=== PATIENT | female | born 1935 | race Caucasian/White ===

== ENCOUNTER → 2023-11-29 06:33 | Outpatient (REF) | payer MEDICARE, OTHER, SELFPAY ==
[2023-11-29 07:44] LABS: ALT (SGPT) 22 U/L (0-35); AST (SGOT) 38 U/L (14-36); Albumin 3.9 g/dl (3.5-5.0); Alkaline Phosphatase 78 U/L (38-126); Blood Urea Nitrogen 25 mg/dl (7-17); Calcium 9.1 mg/dl (8.4-10.2); Carbon Dioxide 31 mmol/L (22-30); Chloride 101 mmol/L (98-107); Glucose 106 mg/dl (70-99); HDL Cholesterol 46 mg/dl; LDL Cholesterol, Calculated 70 mg/dl; Potassium 4.3 mmol/L (3.5-5.1); Sodium 140 mmol/L (135-145); Total Bilirubin 1.4 mg/dl (0.2-1.3); Total Cholesterol 142 mg/dl (50-199); Total Protein 6.9 g/dl (6.3-8.2); Triglyceride 133 mg/dl (10-149); Very Low Density Lipoprotein 26 mg/dl (0-30); eGFR > 60.00
[2023-11-29 07:44] LABS: Microalbumin, Random Urine 8.4 mg/dl (0.6-1.7); Microalbumin/creatinine Ratio 55.8 mg/g
[2023-11-29 09:49] LABS: Glycohemoglobin (HgbA1c) 6.9 % (4.0-5.6)
== END ==
LOC: REG 06:33
PROVIDERS: ATTENDING PHYSICIAN Internal Medicine
DX: E78.00 Pure hypercholesterolemia, unspecified (principal); E11.8 Type 2 diabetes mellitus with unspecified complications
CPT/HCPCS: 36415; 80053; 80061; 82043; 82570; 83036

== ENCOUNTER → 2023-12-29 10:42 | Outpatient (REF) | payer MEDICARE, OTHER, SELFPAY | LOC: RAD 10:42 | PROVIDERS: ATTENDING PHYSICIAN Internal Medicine Gastroenterology; FAMILY PHYSICIAN Family Medicine | DX: R12 Heartburn (principal) | CPT/HCPCS: 74246 ==

== ENCOUNTER → 2024-02-19 10:40 | Outpatient (REF) | payer MEDICARE, OTHER, SELFPAY | LOC: HWRAD 10:40 | PROVIDERS: ATTENDING PHYSICIAN Internal Medicine Gastroenterology; FAMILY PHYSICIAN Family Medicine | DX: R19.5 Other fecal abnormalities (principal) | CPT/HCPCS: 74261 ==

== ENCOUNTER → 2024-04-16 11:26 | Outpatient (REF) | payer MEDICARE, OTHER, SELFPAY | LOC: WDC 11:26 | PROVIDERS: ATTENDING PHYSICIAN Surgery; FAMILY PHYSICIAN Family Medicine | DX: Z12.31 Encounter for screening mammogram for malignant neoplasm of breast (principal) | CPT/HCPCS: 77063; 77067 ==

== ENCOUNTER → 2024-06-14 06:30 | Outpatient (REF) | payer MEDICARE, OTHER, SELFPAY ==
[2024-06-14 07:14] LABS: % Basophils 0.8 % (0-2); % Eosinophils 3.8 % (0-6); % Immature Granulocytes 0.2 % (0-0.5); % Lymphocytes 23.2 % (20.5-51.1); % Monocytes 13.3 % (1.7-9.3); % Neutrophils 58.7 % (42.2-75.2); Absolute Eosinophils 0.2 10^3/uL (0-0.7); Absolute Lymphocytes 1.1 10^3/uL (1.2-3.4); Absolute Monocytes 0.6 10^3/uL (0.1-0.6); Absolute Neutrophils 2.8 10^3/uL (1.4-6.5); Hematocrit 43.3 % (37.0-47.0); Hemoglobin 14.1 g/dL (12.0-16.0); Mean Corp Hgb Conc. 32.6 g/dL (33.0-37.0); Mean Corpuscular Hgb 30.1 pg (27.0-31.0); Mean Corpuscular Volume 92.5 fL (81.0-99.0); Mean Platelet Volume 10.5 fL (7.4-10.4); Nucleated Red Blood Cells % 0 %; Platelet Count 166 10^3/uL (130-400); Red Blood Cell Count 4.68 10^6/uL (4.20-5.40); Red Cell Dist. Width 12.5 % (11.5-14.5); White Blood Cell Count 4.7 10^3/uL (4.8-10.8)
[2024-06-14 07:43] LABS: ALT (SGPT) 25 U/L (0-35); AST (SGOT) 37 U/L (14-36); Alkaline Phosphatase 80 U/L (38-126); Blood Urea Nitrogen 23 mg/dl (7-17); Calcium 9.1 mg/dl (8.4-10.2); Carbon Dioxide 32 mmol/L (22-30); Chloride 101 mmol/L (98-107); Glucose 98 mg/dl (70-99); HDL Cholesterol 47 mg/dl; LDL Cholesterol, Calculated 67 mg/dl; Potassium 4.4 mmol/L (3.5-5.1); Sodium 142 mmol/L (135-145); Total Bilirubin 1.1 mg/dl (0.2-1.3); Total Cholesterol 143 mg/dl (50-199); Total Protein 6.9 g/dl (6.3-8.2); Triglyceride 149 mg/dl (10-149); Very Low Density Lipoprotein 29 mg/dl (0-30); eGFR > 60.00
[2024-06-14 08:00] LABS: Vitamin D, 25-OH*** 51.7 ng/mL (30-80)
[2024-06-14 09:54] LABS: Glycohemoglobin (HgbA1c) 6.5 % (4.0-5.6)
[2024-06-15 11:41] LABS: Intact PTH 116.8 pg/ml (13.6-85.8)
== END ==
LOC: REG 06:30
PROVIDERS: ATTENDING PHYSICIAN Family Medicine
DX: E11.8 Type 2 diabetes mellitus with unspecified complications (principal); E78.00 Pure hypercholesterolemia, unspecified; E34.9 Endocrine disorder, unspecified; E55.9 Vitamin D deficiency, unspecified
CPT/HCPCS: 36415; 80053; 80061; 82306; 83036; 83970; 84443; 85025

== ENCOUNTER → 2024-07-10 10:34 | Outpatient (REF) | payer MEDICARE, OTHER, SELFPAY | LOC: WDC 10:34 | PROVIDERS: ATTENDING PHYSICIAN Surgery; FAMILY PHYSICIAN Family Medicine | DX: R92.2 Inconclusive mammogram (principal) | CPT/HCPCS: 76641 ==

== ENCOUNTER → 2024-12-06 07:46 | Outpatient (REF) | payer MEDICARE, OTHER, SELFPAY ==
[2024-12-06 08:39] LABS: % Basophils 0.8 % (0-2); % Eosinophils 2.6 % (0-6); % Immature Granulocytes 0.4 % (0-0.5); % Lymphocytes 25.5 % (20.5-51.1); % Monocytes 12.8 % (1.7-9.3); % Neutrophils 57.9 % (42.2-75.2); Absolute Eosinophils 0.1 10^3/uL (0-0.7); Absolute Lymphocytes 1.3 10^3/uL (1.2-3.4); Absolute Monocytes 0.6 10^3/uL (0.1-0.6); Absolute Neutrophils 2.8 10^3/uL (1.4-6.5); Hematocrit 47.8 % (37.0-47.0); Hemoglobin 15.6 g/dL (12.0-16.0); Mean Corp Hgb Conc. 32.6 g/dL (33.0-37.0); Mean Corpuscular Hgb 31.4 pg (27.0-31.0); Mean Corpuscular Volume 96.2 fL (81.0-99.0); Mean Platelet Volume 11.3 fL (7.4-10.4); Nucleated Red Blood Cells % 0 %; Platelet Count 149 10^3/uL (130-400); Red Blood Cell Count 4.97 10^6/uL (4.20-5.40); Red Cell Dist. Width 12.8 % (11.5-14.5); White Blood Cell Count 4.9 10^3/uL (4.8-10.8)
[2024-12-06 09:41] LABS: ALT (SGPT) 22 U/L (0-35); AST (SGOT) 37 U/L (14-36); Alkaline Phosphatase 84 U/L (38-126); Blood Urea Nitrogen 25 mg/dl (7-17); Calcium 9.4 mg/dl (8.4-10.2); Carbon Dioxide 33 mmol/L (22-30); Chloride 102 mmol/L (98-107); Glucose 99 mg/dl (70-99); HDL Cholesterol 48 mg/dl; LDL Cholesterol, Calculated 80 mg/dl; Potassium 4.5 mmol/L (3.5-5.1); Sodium 143 mmol/L (135-145); Total Bilirubin 1.4 mg/dl (0.2-1.3); Total Cholesterol 161 mg/dl (50-199); Triglyceride 168 mg/dl (10-149); Very Low Density Lipoprotein 33 mg/dl (0-30); eGFR > 60.00
[2024-12-06 09:47] LABS: Glycohemoglobin (HgbA1c) 6.6 % (4.0-5.6)
[2024-12-07 09:31] LABS: Intact PTH 121.3 pg/ml (13.6-85.8)
== END ==
LOC: REG 07:46
PROVIDERS: ATTENDING PHYSICIAN Family Medicine
DX: E11.8 Type 2 diabetes mellitus with unspecified complications (principal); E78.00 Pure hypercholesterolemia, unspecified; E34.9 Endocrine disorder, unspecified; R53.83 Other fatigue; Z12.11 Encounter for screening for malignant neoplasm of colon
CPT/HCPCS: 36415; 80053; 80061; 83036; 83970; 85025

== ENCOUNTER → 2024-12-31 13:36 | Outpatient (REF) | payer MEDICARE, OTHER, SELFPAY | LOC: REG 13:36 | PROVIDERS: ATTENDING PHYSICIAN Family Medicine | DX: Z12.11 Encounter for screening for malignant neoplasm of colon (principal); Z79.01 Long term (current) use of anticoagulants | CPT/HCPCS: 82272 ==

== ENCOUNTER 2025-01-01 19:42 | Inpatient (IN) | payer MEDICARE, OTHER, SELFPAY ==
[2025-01-01 14:32] VITALS: BP 155/83
[2025-01-01 15:47] VITALS: BMI 30.4
--- NOTE | 2025-01-01 16:15 | ED.MUSCINJ ---
HPI-Injury
General
Chief Complaint: Fall
Source: patient
Exam Limitations: none
Time Seen by Provider: 01/01/25 15:49
History of Present Illness-Injury
Initial Injury comments:
89-year-old female on Eliquis presents via EMS after a fall. She tripped on a curb and fell backwards. Hitting her head. She complains of right hip and right shoulder pain as well. No loss of conscious. Last took her Eliquis this morning. She
takes her Eliquis for history of A-fib. No chest pain or shortness of breath. No other complaints at this time
Past History
Past History
ED Past Medical History: CAD, GERD, Hypercholesterolemia and GA
ED Past Surgical History: Cardiac (Angioplasty with stenting), Tonsilectomy and Other (Cataract surgery, left breast biopsy)
Social History
Tobacco: Former smoker (, leg or)
Living: alone
Family History
Family History: Unable to obtain
Phy Exam
Physical Exam
Physical Exam:
General: Well-appearing female no acute respiratory distress
HEENT: Normocephalic atraumatic
Heart: Regular rate and rhythm
Lungs: Clear no wheeze
Musculoskeletal exam: Right hip is tender anteriorly and laterally. Subtle external rotation of the right leg with increased pain with internal rotation. Right shoulder is also swollen and tender over the proximal humerus VaQua spine immobilized
in collar
Abdomen is soft nontender nondistended
Injury Course
Orders/Labs/Results
Orders:
Orders
01/01/25 14:37
[address] Cervical Spine W/o Iv Contr Urgent
Comment:
Reason For Exam: fall
CT Head W/o Iv Contrast Urgent
Comment:
Reason For Exam: fall
01/01/25 16:13
Morphine Sulfate 4 mg IV NOW STA
Ondansetron Injectable [Zofran] 4 mg IV NOW STA
CR Hip - RT w/wo Pel 2-3 Vw* Urgent
Comment:
Reason For Exam: fall
Include a pelvis x-ray?: Yes
CR Shoulder, Trauma - Right Urgent
Comment:
Reason For Exam: fall
01/01/25 17:36
CR Hand - Right Min 3 Views Urgent
Comment:
Reason For Exam: fall
01/01/25 17:41
Type+Screen Urgent
Complete Blood Count/With Diff Urgent
Comprehensive Metabolic Panel Urgent
Abnormal Lab Results
01/01/25
17:41
MCH 31.7 H pg
(27.0-31.0)
MPV 10.6 H fL
(7.4-10.4)
Abs Immat Gran (auto) 0.1 H 10^3/uL
(0-0.05)
Absolute Neuts (auto) 8.7 H 10^3/uL
(1.4-6.5)
Absolute Lymphs (auto) 0.6 L 10^3/uL
(1.2-3.4)
Neutrophils % 86.6 H %
(42.2-75.2)
Lymphocytes % 6.0 L %
(20.5-51.1)
Potassium 5.3 H mmol/L
(3.5-5.1)
Carbon Dioxide 31 H mmol/L
(22-30)
BUN 26 H mg/dl
(7-17)
Glucose 172 H mg/dl
(70-99)
01/01/25 17:41
01/01/25 17:41
MDM/Problems Addressed
Differential Diagnosis Includes:
Fall with head strike on Eliquis also complains of right hip and shoulder pain. CT of head and cervical spine pending to evaluate for intracranial hemorrhage. X-ray right hip and shoulder pending to evaluate for fractures
*Critical Care Note
Total Time (30-74mins, 75-104mins- exclusive of procedures): Not Applicable
Update Note
Update Note:
X-rays right hip demonstrate femoral neck fracture x-ray right shoulder demonstrates comminuted proximal humerus fracture. CT of the head and cervical spine were negative for acute traumatic injury. Patient received some relief of her pain with
morphine IV. Will admit to hospital for further evaluation and treatment
ED Attending Note
-
Portions of this chart may have been created with voice recognition software.� Occasional wrong word or��sound alike� substitutions may have occurred due to the inherent limitations of voice recognition software.
Discharge Plan
Departure
Patient Disposition: Admit
Date of Disposition: 01/01/25
Time of Disposition: 18:34
Presentation/result/management discussed w/ accepting MD/DO: Hospitalist
Discharge Problem:
Closed fracture of right hip, Closed fracture of proximal end of right humerus
Prescriptions:
No Action
omega-3 fatty acids-fish oil 1 EACH capsule
2 ea PO DAILY
Patient Comments:
chewables
simvastatin 40 MG tablet
40 mg PO QPM
Patient Comments:
pt cuts pill up into pieces
calcium carbonate [Antacid Extra-Strength] 1 TABLET tablet,chewable
1 tab PO PRN PRN (Reason: gerd)
lansoprazole 30 MG capsule,delayed release(DR/EC)
30 mg PO DAILY
denosumab [Prolia] 60 MG/ML syringe
60 mg SQ
Patient Comments:
q 6 months
apixaban [Eliquis] 5 MG tablet
5 mg PO BID
metoprolol tartrate 50 MG tablet
50 mg PO BID Qty: 60 2RF
Referrals:
NONE,* [Family Provider] -
Interventions
Interventions:
*Risk Screen - Suicide Last Done: 01/01/25 14:32
*General Assessment Last Done: 01/01/25 14:32
*Neglect/Abuse Screening Last Done: 01/01/25 14:32
*ED COVID-19 Vaccine History Last Done: 01/01/25 14:32
ED-Musculoskeletal Assessment Last Done: 01/01/25 15:48
ED- Neurological Assessment Last Done: 01/01/25 15:48
ED-Skin Assessment Last Done: 01/01/25 18:28
Discharge Date and Time
Print Language: SERBIAN
[2025-01-01] MEDS: MORPHINE SULFATE 4 MG IV (16:27)
[2025-01-01] MEDS: ZOFRAN 4 MG IV ×2 (16:27→22:17)
[2025-01-01 18:02] LABS: ALT (SGPT) 20 U/L (0-35); AST (SGOT) 30 U/L (14-36); Albumin 4.1 g/dl (3.5-5.0); Alkaline Phosphatase 83 U/L (38-126); Blood Urea Nitrogen 26 mg/dl (7-17); Carbon Dioxide 31 mmol/L (22-30); Chloride 103 mmol/L (98-107); Estimated Creatinine Clearance 40 ml/min; Glucose 172 mg/dl (70-99); Potassium 5.3 mmol/L (3.5-5.1); Sodium 140 mmol/L (135-145); Total Bilirubin 1.1 mg/dl (0.2-1.3); Total Protein 6.7 g/dl (6.3-8.2); eGFR > 60.00
[2025-01-01 18:18] LABS: % Basophils 0.3 % (0-2); % Eosinophils 0.9 % (0-6); % Immature Granulocytes 0.5 % (0-0.5); % Monocytes 5.7 % (1.7-9.3); % Neutrophils 86.6 % (42.2-75.2); Absolute Eosinophils 0.1 10^3/uL (0-0.7); Absolute Immature Granulocytes 0.1 10^3/uL (0-0.05); Absolute Lymphocytes 0.6 10^3/uL (1.2-3.4); Absolute Monocytes 0.6 10^3/uL (0.1-0.6); Absolute Neutrophils 8.7 10^3/uL (1.4-6.5); Hematocrit 44.3 % (37.0-47.0); Hemoglobin 14.7 g/dL (12.0-16.0); Mean Corp Hgb Conc. 33.2 g/dL (33.0-37.0); Mean Corpuscular Hgb 31.7 pg (27.0-31.0); Mean Corpuscular Volume 95.7 fL (81.0-99.0); Mean Platelet Volume 10.6 fL (7.4-10.4); Nucleated Red Blood Cells % 0 %; Platelet Count 145 10^3/uL (130-400); Red Blood Cell Count 4.63 10^6/uL (4.20-5.40); Red Cell Dist. Width 12.5 % (11.5-14.5)
[2025-01-01 18:36] VITALS: BP 106/66
--- NOTE | 2025-01-01 18:38 | HPS.HSE ---
Family Physician
-
Family Physician: * NONE
Chief Complaint
-
mechanical fall
History of Present Illness
Patient is a 89-year-old female with past medical history significant for essential hypertension, hypercholesterolemia, persistent atrial fibrillation, DM-II, CAD and GERD who presented to [facility] ED for evaluation of mechanical fall. Patient reports
attempting to step on curb and lost balance and fell backwards landing on right side and did strike head. She denies any dizziness, confusion, or weakness. Denies loss of consciousness. Patient on Eliquis, last dose this morning.
Medical History
Past Medical History
Past Medical History: Reports Other
Additional Past Medical History:
essential hypertension
hypercholesterolemia
persistent atrial fibrillation
DM-II
CAD
GERD
Hx ductal carcinoma in situ of breast
Past Surgical History: Reports Other
Additional Past Surgical History:
Cardiac stents x 4
Breast biopsy(1988)
Aneurysm left leg
L hip replacement
Right Breast Lumpectomy 01/04/2016 radiation 24 sessions- no chem
Social History
Tobacco: Non-smoker
Family History
Family History: Not pertinent
Allergies / Home Medications
Allergies reflects when Allergies were last updated in [employer].
Home Medications with original date entered in [employer]
Allergy/Medication List:
Allergies
Allergy/AdvReac Type Severity Reaction Status Date / Time
Enviornmental Allergy Runny Uncoded 01/01/25 14:37
nose,
eyes/ears
itching,
sneezing
Home Medications
apixaban 5 mg tablet (Eliquis) 5 mg PO BID Blood clot prevention/tx 09/19/20
metoprolol tartrate 50 mg tablet 50 mg PO BID #60 tabs 09/24/20
B Complete Gummy 1 tab PO DAILY 01/01/25
ascorbic acid (vitamin C) 500 mg chewable tablet (Vitamin C) 500 mg PO DAILY 01/01/25
pediatric multivitamin no.258 (Centrum Kids Multigummy chewable tablet) 1 tab PO DAILY 01/01/25
pravastatin 20 mg tablet 20 mg PO HS 01/01/25
Review of Systems
-
History Source: Patient
Constitutional: Reports No Symptoms
EENT: Reports No Symptoms
Respiratory: Reports No Symptoms
Cardiac: Reports No Symptoms
Abdomen/GI: Reports No Symptoms
: Reports No Symptoms
Musculoskeletal: Reports Joint Pain (right shoulder, right hip)
Skin: Reports No Symptoms
Neurological: Reports No Symptoms
Endocrine: Reports No Symptoms
Hematologic/Lymphatic: Reports No Symptoms
Psych: Reports No Symptoms
Physical Exam
Vital Signs
Vital Signs
Temp Pulse Resp BP Pulse Ox
98.6 F 83 18 106/66 93
01/01/25 18:36 01/01/25 18:36 01/01/25 18:36 01/01/25 18:36 01/01/25 18:36
Physical Exam
General: Well Developed, Well Nourished, No Apparent Distress, Comfortable and Conversant
HEENT: NormoCephalic, Moist mucous membranes, Atraumatic, [place] Conjunctivae, Nose Appears Normal and Ears Appear Normal
Respiratory: Clear
Cardiac: S1/S2 and Irregular Rhythm
Breast: Deferred by me
GI: Soft, Non Tender, Non Distended and Normal Bowel Sounds
Rectal: Deferred by Provider
Genito-urinary: Deferred by me
Musculoskeletal: No Clubbing, No Cyanosis, No Edema and Other (right should and right hip pain with limited ROM )
Skin: IV/Catheter Site
Neuro: Awake, Alert, AO x 3 and Nonfocal/grossly intact
Psych: Calm and Intact Judgment/Insight
Laboratory Results
-
01/01/25 17:41
01/01/25 17:41
Laboratory Results
Total Bilirubin 1.1 mg/dl (0.2-1.3) 01/01/25 17:41
AST 30 U/L (14-36) 01/01/25 17:41
ALT 20 U/L (0-35) 01/01/25 17:41
Alkaline Phosphatase 83 U/L (38-126) 01/01/25 17:41
Data Reviewed
-
Diagnostic Radiology: Report Reviewed by me (Right shoulder, Right hip, hand (see reports))
CT Scan: Report Reviewed by me (Head/c-spine: 1. No acute intracranial abnormality noted. 2. No acute fracture or subluxation of the cervical spine.)
Lab Data: Labs Reviewed by me
Impression/Plan
-
IMPRESSION/PLAN:
#mechanical fall
Right hand x-ray: No acute fracture or dislocation. Scattered moderate to severe degenerative changes. Chondrocalcinosis of the wrist.
Right shoulder x-ray: Proximal right humerus fracture.
Right Hip x-ray: Impacted subcapital right femoral neck fracture with mild varus angulation. No intertrochanteric or intra-articular extension or dislocation.
Moderate to severe degenerative changes of the right hip. Total left hip arthroplasty noted without overt complication. Mild degenerative changes of the pubis symphysis,
bilateral sacroiliac joints and partially visualized lower lumbar spine. Soft tissues are grossly unremarkable.
Head/C-spine CT: 1. No acute intracranial abnormality noted.
2. No acute fracture or subluxation of the cervical spine.
- Admit to med/surg
- Consult Orthopedics
- NPO at midnight for possible OR tomorrow
- Pain regimen
#essential hypertension
- continue metoprolol
#hypercholesterolemia
- continue pravastatin
#persistent atrial fibrillation
- continue metoprolol
- hold Eliquis for potential OR
#DM-II
controlled with diet and exercise
#CAD
#GERD
#Hx ductal carcinoma in situ of breast
s/p lumpectomy and radiation
Code status: full code
DVT prophylaxis: SCDs
[2025-01-01 18:47] VITALS: BP 113/85
[2025-01-01 19:00] VITALS: BP 127/84
[2025-01-01] MEDS: DILAUDID 0.5 MG IV (19:41)
--- NOTE | 2025-01-01 20:04 | W.PN.UPDATE ---
Update Note
Progress Note Update
This is an addendum to the H&P written by Gena Hawk on 01/01/2025.� Patient seen examined independently with BLACKJACK DEALER.
89-year-old female past medical history of paroxysmal atrial fibrillation on Eliquis, CAD status post stents, hypertension, hyperlipidemia, popliteal aneurysm status post repair, tricuspid regurgitation, mild mitral regurgitation, right breast
cancer status post lumpectomy, GERD, hiatal hernia, irritable bowel syndrome, diverticulosis, allergic rhinitis, osteoarthritis, presenting after a fall.� She tripped on a curb and fell backwards hitting her head.� Complains of right hip and right
shoulder pain.
Labs show potassium 5.3.
CT head and cervical spine negative.
Patient has proximal right humerus fracture and shoulder x-ray.� She has also impacted subcapital right femoral neck fracture.
Right shoulder CT scan pending.
Check EKG.� Hyperkalemia�likely�secondary to hypovolemia.� IV fluids.� Pain control with Tylenol and Dilaudid.� Ortho consulted.� Hold Eliquis.� N.p.o. postmidnight for potential surgery tomorrow.� Patient appears well compensated and although at
higher risk of postcardiac complications due to history and can proceed to surgery.
[2025-01-01 21:12] VITALS: BP 124/86
[2025-01-01 21:53] VITALS: BMI 28.6
[2025-01-01] MEDS: LOPRESSOR 50 MG PO (22:05)
[2025-01-01] MEDS: PRAVACHOL 20 MG PO (22:05)
[2025-01-01] MEDS: NSS 1000 IV (22:06)
[2025-01-01 23:20] VITALS: BP 124/73
[2025-01-02] VITALS (13 sets, daily range): BP systolic 128–153; BP diastolic 69–97
--- NOTE | 2025-01-02 00:34 | PTCARENOTE ---
pt bladder scan for 307ml, no urine output since adm to unit, attempted bed bryant but unable to void, will attempt in an hour.
[2025-01-02] MEDS: DILAUDID 0.5 MG IV ×2 (00:45→15:16)
--- NOTE | 2025-01-02 01:02 | PTCARENOTE ---
Pt has healing, dry red patches of poison chencho on right arm, bl thigh and r/s abdomen. Pt was treating at home with calamine lotion. Areas are CARON air at this time, Pt right thumb and right elbow with small laceration, cleansed and dry dressing
applied.
--- NOTE | 2025-01-02 05:09 | DOWNTIME ---
There was a ezzai - how to arab[facility] Client [employer] Downtime on 01/02/2025 from 0200 to 01/03/2024 at 0318 . Downtime documentation of patient's care, including medication administrations, has been reconciled in the electronic record per guidelines. Refer to the
patient's paper chart under the miscellaneous tab to see printed paper medication records and downtime forms.
[2025-01-02 05:20] LABS: Urine Albumin 1+ (Neg - Trace); Urine Bilirubin Negative (Negative); Urine Character Clear (Clear); Urine Color Yellow; Urine Glucose Negative (Negative); Urine Ketone 2+ (Negative); Urine Leukocyte Negative (Negative); Urine Nitrite Negative (Negative); Urine Occult Blood Negative (Negative); Urine Specific Gravity 1.025 (<1.030); Urine Urobilinogen Negative (Neg - 1+)
[2025-01-02 06:19] LABS: Urine Calcium Oxalate Crystals Seen
[2025-01-02 06:20] LABS: Urine Bacteria Few (Negative); Urine Mucus Few; Urine Red Blood Cell 0-2 /HPF (0-2); Urine White Cell 0-2 /HPF (0-5)
--- NOTE | 2025-01-02 07:00 | W.PN.UPDATE ---
Update Note
Progress Note Update
Full orthopedic consult dictated:
Dx: Right comminuted proximal humerus fracture and right nondisplaced femoral neck fracture
Plan: Patient is going to undergo right hip cannulated screws later today and after complete Eliquis washout do right reverse total shoulder arthroplasty at a later date both under direction of Dr. Torres. She will be n.p.o. for now and Ancef
on-call to operating room. [place] on hold for stop.
[2025-01-02] MEDS: NSS 1000 IV ×2 (07:55→20:23)
[2025-01-02 07:59] LABS: Hematocrit 40.6 % (37.0-47.0); Hemoglobin 13.4 g/dL (12.0-16.0); Mean Corpuscular Hgb 31.9 pg (27.0-31.0); Mean Corpuscular Volume 96.7 fL (81.0-99.0); Mean Platelet Volume 11.2 fL (7.4-10.4); Platelet Count 138 10^3/uL (130-400); Red Cell Dist. Width 12.9 % (11.5-14.5); White Blood Cell Count 8.5 10^3/uL (4.8-10.8)
[2025-01-02] MEDS: LOPRESSOR PO (08:00)
[2025-01-02] MEDS: ZOFRAN 4 MG IV ×2 (08:01→15:16)
[2025-01-02 08:30] LABS: Blood Urea Nitrogen 27 mg/dl (7-17); Calcium 8.4 mg/dl (8.4-10.2); Carbon Dioxide 25 mmol/L (22-30); Chloride 105 mmol/L (98-107); Estimated Creatinine Clearance 44 ml/min; Glucose 214 mg/dl (70-99); Potassium 4.7 mmol/L (3.5-5.1); Sodium 142 mmol/L (135-145); eGFR > 60.00
--- NOTE | 2025-01-02 11:01 | CM ---
Reviewed the chart notes and spoke with the patient and daughter at the bedside. The patient resides alone in a one story home with a total of four steps to enter with side railing. The patient reports on DME is a cane. The patient has had [facility]
in the past, but no SNF. The patient confirmed her pharmacy of choice is the [facility]. Patient to go to OR today for hip fx repair. Later plan is for right reverse total shoulder arthroplasty at a later date CM continues to be
available to patient/family and is monitoring medical plan for needs at discharge.
Plan: Most likely SNF. List of area SNFs provided to the patient's daughter for review. No precert will be required.
[2025-01-02] MEDS: LR 1000 IV (11:15)
--- NOTE | 2025-01-02 12:24 | W.PN.HOSP.TC ---
Today's Communication/Plan
-
holding Eliquis
OR today
PT/OT after
Assessment / Plan
Assessment / Plan
Physical Exam
General: Well Developed, Well Nourished, No Apparent Distress, Comfortable and Conversant
HEENT: NormoCephalic, Moist mucous membranes, Atraumatic, [place] Conjunctivae, Nose Appears Normal and Ears Appear Normal
Respiratory: Clear
Cardiac: S1/S2 and Irregular Rhythm
Breast: Deferred by me
GI: Soft, Non Tender, Non Distended and Normal Bowel Sounds
Rectal: Deferred by Provider
Genito-urinary: Deferred by me
Musculoskeletal: No Clubbing, No Cyanosis, No Edema and Other (right should and right hip pain with limited ROM )
Skin: IV/Catheter Site
Neuro: Awake, Alert, AO x 3 and Nonfocal/grossly intact
Psych: Calm and Intact Judgment/Insight
#mechanical fall
#Proximal right humerus fracture.
#Right femoral neck fracture with mild varus angulation.
-OR today
-Ortho consulted
-Eliquis on hold
#essential hypertension
- continue metoprolol
#hypercholesterolemia
- continue pravastatin
#persistent atrial fibrillation
- continue metoprolol
- hold Eliquis
#DM-II
controlled with diet and exercise
#CAD
#GERD
#Hx ductal carcinoma in situ of breast
s/p lumpectomy and radiation
Code status: full code
DVT prophylaxis: SCDs
Anticipated Discharge: 24 - 48 hours
Subjective/Interval History
-
Date of Service: January 02, 2025
no acute events
Objective Data
-
Labs:
Laboratory Results
01/02/25
07:02
WBC 8.5
Hgb 13.4
Hct 40.6
Plt Count 138
Sodium 142
Potassium 4.7
Chloride 105
Carbon Dioxide 25
BUN 27 H
Creatinine 0.8
Glucose 214 H
Calcium 8.4
Vital Signs:
Vital Signs
Temp Pulse Resp BP Pulse Ox
97.9 F 82 20 139/83 94
01/02/25 07:24 01/02/25 07:24 01/02/25 07:24 01/02/25 07:24 01/02/25 07:24
I&O
01/01/25 01/02/25 01/03/25
06:59 06:59 06:59
Intake Total 800 / 800
Output Total 500 / 500
Balance 300 / 300
Review of Systems
-
History Source: Patient
All other systems: Not reviewed unless documented
Data Reviewed
-
CT Scan: Report Reviewed by me
Labs: Labs Reviewed by me
[2025-01-02 12:35] LABS: Glucose - Point of Care 156 mg/dl (70-99)
--- NOTE | 2025-01-02 12:56 | PTCARENOTE ---
Addendum entered by Yamila Stewart RN 01/02/25 17:57:
late entry due to patient care. RN to reassess urine output following surgery, if no urine output at that point then directed to straight cath per Dr Rodriguez. RN continuing to bladder scan and assess per urinary retention protocol, care ongoing.
Original Note:
Pt continues with urinary retention, no urine output since straight cath at 0400 this am. IV bolus completed per order. Bladder scan > 219. Dr Rodriguez notified and instructed RN to reassess later today/tonight. Care remains ongoing.
[2025-01-02] MEDS: DILAUDID 0.25 MG IV ×2 (19:58→20:18)
[2025-01-02] MEDS: BACTROBAN 2% OINTMENT 1 APPLIC NASAL (22:10)
[2025-01-02] MEDS: COLACE 100 MG PO (22:11)
[2025-01-02] MEDS: PRAVACHOL 20 MG PO (22:11)
[2025-01-02] MEDS: LOPRESSOR 50 MG PO (22:11)
[2025-01-03] VITALS (8 sets, daily range): BP systolic 107–144; BP diastolic 70–701; PULSE 76–89; O2SAT 96
[2025-01-03] MEDS: ANCEF 5 IV ×2 (01:00→08:15)
--- NOTE | 2025-01-03 01:36 | TRANSFER ---
Received report from SUPERVISOR DECORATING Mandy - pt returned to floor post op @ 2105 w right reverse TSA and right hip cannulated screw. RUE w primaseal drsg CDI, arm in sling, mild sensation loss to hand. RLE primaseal to lateral leg w scant drainage, mild
sensation loss to foot. VS WNL. pt oriented, however, stated she felt a little confused about where she was, but understood that she was in the hospital and had surgery. IVF as ordered. Daughter at the bedside. Pt denied pain.
--- NOTE | 2025-01-03 05:34 | W.PN.ORTHO ---
Today's Communication / Plan
-
89F POD 1 R hip cannulated screw fixation and R reverse TSA with Dr. Torres
-NWB to RUE
-WBAT to RLE; may not use walker yet at this time however
-DVT ppx- reduced dose eliquis as ordered x3 days then resume normal dosing
-diet per primary
-pain regimen on board
-PT/OT/DC planning
-sling to RUE; ROM ok of elbow wrist and hand
Assessment
.
Distal Motor Intact: Yes
Dressing:
Clean, dry and intact.
Plan
.
Surgery / Date: 01/02/25 R hip pinning, R rTSA w/ Dr. Torres
Activity:
Out of bed.
PT/OT
Subjective
.
.:
Patient resting comfortably.
Vital Signs and Labs
.
Vital Signs and Labs:
Temp Pulse Resp BP Pulse Ox
97.5 F 109 18 107/73 94
01/03/25 03:26 01/03/25 03:26 01/03/25 03:26 01/03/25 03:26 01/03/25 03:26
[2025-01-03] MEDS: NSS IV (06:20)
[2025-01-03 08:09] LABS: Blood Urea Nitrogen 25 mg/dl (7-17); Calcium 7.6 mg/dl (8.4-10.2); Carbon Dioxide 25 mmol/L (22-30); Chloride 108 mmol/L (98-107); Estimated Creatinine Clearance 50 ml/min; Glucose 189 mg/dl (70-99); Potassium 4.6 mmol/L (3.5-5.1); Sodium 141 mmol/L (135-145); eGFR > 60.00
[2025-01-03] MEDS: ELIQUIS 2.5 MG PO ×2 (08:14→19:57)
[2025-01-03] MEDS: BACTROBAN 2% OINTMENT 1 APPLIC NASAL ×2 (08:15→19:57)
[2025-01-03] MEDS: LOPRESSOR 50 MG PO ×2 (08:15→19:57)
[2025-01-03 08:20] LABS: Hematocrit 32.5 % (37.0-47.0); Hemoglobin 10.8 g/dL (12.0-16.0); Mean Corp Hgb Conc. 33.2 g/dL (33.0-37.0); Mean Corpuscular Hgb 31.9 pg (27.0-31.0); Mean Corpuscular Volume 95.9 fL (81.0-99.0); Mean Platelet Volume 11.5 fL (7.4-10.4); Platelet Count 100 10^3/uL (130-400); Red Blood Cell Count 3.39 10^6/uL (4.20-5.40); Red Cell Dist. Width 12.9 % (11.5-14.5); White Blood Cell Count 9.9 10^3/uL (4.8-10.8)
[2025-01-03] MEDS: ROXICODONE 2.5 MG PO (08:22)
[2025-01-03] MEDS: COLACE PO ×2 (08:23→19:57)
[2025-01-03] MEDS: NSS 1000 IV (08:30)
--- NOTE | 2025-01-03 11:44 | PTCARENOTE ---
Pt with no urine output since straight cath last night. Bladder scan approx 1000 for 347. RN instructed by Dr Rodriguez to straight cath and continue IVF. Pt straight cathed for 450 cc yellow urine. Sterile technique followed. Care remains ongoing.
--- NOTE | 2025-01-03 12:27 | CM ---
Reviewed the chart notes. Patient is POD 1 R hip cannulated screw fixation. Patient is NWB to RUE. Patient is for R reverse TSA with Dr. Torres at some point. Patient may not use walker at this time. CM continues to be available to
patient/family and is monitoring medical plan for needs at discharge.
Plan: Discharge to SNF when medically stable. Patient's daughter reviewing SNF list.
--- NOTE | 2025-01-03 12:31 | CM ---
Addendum entered by Pricila Zendejas RN 01/03/25 16:01:
Referrals sent in [facility]. No prior auth required.
Original Note:
Reviewed the chart notes. Patient is POD 1 R hip cannulated screw fixation and right reverse total shoulder arthroplasty. Patient is NWB to RUE and WBAT to RLE. Patient may not use walker at this time. CM continues to be available to
patient/family and is monitoring medical plan for needs at discharge.
Plan: Discharge to SNF when medically stable. Patient's daughter reviewing SNF list.
--- NOTE | 2025-01-03 13:38 | W.PN.HOSP.TC ---
Today's Communication/Plan
-
Monitor CBC, hemoglobin
Eliquis at half dose
Monitor urine output
Assessment / Plan
Assessment / Plan
Physical Exam
General: Well Developed, Well Nourished, No Apparent Distress, Comfortable and Conversant
HEENT: NormoCephalic, Moist mucous membranes, Atraumatic, [place] Conjunctivae, Nose Appears Normal and Ears Appear Normal
Respiratory: Clear
Cardiac: S1/S2 and Irregular Rhythm
Breast: Deferred by me
GI: Soft, Non Tender, Non Distended and Normal Bowel Sounds
Rectal: Deferred by Provider
Genito-urinary: Deferred by me
Musculoskeletal: No Clubbing, No Cyanosis, No Edema and Other (right should and right hip pain with limited ROM )
Skin: IV/Catheter Site
Neuro: Awake, Alert, AO x 3 and Nonfocal/grossly intact
Psych: Calm and Intact Judgment/Insight
#mechanical fall
#Proximal right humerus fracture.
#Right femoral neck fracture with mild varus angulation.
-POD 1 R hip cannulated screw fixation and R reverse TSA with Dr. Torres
--NWB to RUE
-WBAT to RLE; may not use walker yet at this time however
-DVT ppx- reduced dose eliquis as ordered x3 days then resume normal dosing
-sling to RUE; ROM ok of elbow wrist and hand
#Acute blood loss anemia
�Probable donnell-/postoperative bleeding
� Monitor CBC closely
� Transfuse if needed to maintain hemoglobin goal greater than 7
#essential hypertension
- continue metoprolol
#hypercholesterolemia
- continue pravastatin
#persistent atrial fibrillation
- continue metoprolol
- Eliquis
#DM-II
controlled with diet and exercise
#CAD
#GERD
#Hx ductal carcinoma in situ of breast
s/p lumpectomy and radiation
Code status: full code
DVT prophylaxis: Eliquis
Anticipated Discharge: 24 - 48 hours
Subjective/Interval History
-
Date of Service: January 03, 2025
no acute events
Objective Data
-
Labs:
Laboratory Results
01/03/25
06:36
WBC 9.9
Hgb 10.8 L
Hct 32.5 L
Plt Count 100 L D
Sodium 141
Potassium 4.6
Chloride 108 H
Carbon Dioxide 25
BUN 25 H
Creatinine 0.7
Glucose 189 H
Calcium 7.6 L
Vital Signs:
Vital Signs
Temp Pulse Resp BP Pulse Ox
98.1 F 77 18 144/74 95
01/03/25 12:09 01/03/25 12:09 01/03/25 12:09 01/03/25 12:09 01/03/25 12:09
I&O
01/02/25 01/03/25 01/04/25
06:59 06:59 06:59
Intake Total 800 / 800 2285 / 2285
Output Total 500 / 500 500 / 500 450 / 450
Balance 300 / 300 1785 / 1785 -450 / -450
Review of Systems
-
All other systems: Not reviewed unless documented
Data Reviewed
-
CT Scan: Report Reviewed by me
Labs: Labs Reviewed by me
[2025-01-03] MEDS: TUMS CHEWABLE TABLET 200 MG PO (21:37)
[2025-01-03] MEDS: PRAVACHOL 20 MG PO (21:37)
[2025-01-04 06:31] LABS: Blood Urea Nitrogen 27 mg/dl (7-17); Calcium 7.9 mg/dl (8.4-10.2); Carbon Dioxide 29 mmol/L (22-30); Chloride 107 mmol/L (98-107); Estimated Creatinine Clearance 44 ml/min; Glucose 150 mg/dl (70-99); Potassium 4.5 mmol/L (3.5-5.1); Sodium 141 mmol/L (135-145); eGFR > 60.00
[2025-01-04 06:32] LABS: Hematocrit 32.4 % (37.0-47.0); Hemoglobin 10.7 g/dL (12.0-16.0); Mean Platelet Volume 10.8 fL (7.4-10.4); Platelet Count 119 10^3/uL (130-400); Red Blood Cell Count 3.34 10^6/uL (4.20-5.40); Red Cell Dist. Width 13.1 % (11.5-14.5); White Blood Cell Count 11.2 10^3/uL (4.8-10.8)
--- NOTE | 2025-01-04 07:37 | W.PN.ORTHO ---
Today's Communication / Plan
-
89F POD2 Right hip cannulated screw fixation and Right reverse TSA with Dr. Torres
-NWB to RUE. sling in place. ok to perform ROM of hand, wrist, and elbow.
-WBAT to RLE; however may not use rolling walker yet at this time (likely about 4 weeks). ok for david walker as able
-PT/OT
-DVT ppx- reduced dose eliquis as ordered x3 days then resume normal dosing
-Diet per primary
-Pain regimen on board
-Hemoglobin 10.7 on AM labs
-Maintain surgical dressings until follow up appointment
-Case management consult for discharge planning, likely SNF
-Follow up outpatient in 2 weeks
-Patient is orthopedically stable postop. Will sign off at this time. Please reach out with any questions or concerns.
Assessment
.
Distal Motor Intact: Yes
Dressing:
Clean, dry and intact.
Plan
.
Surgery / Date: 01/02/25 R hip pinning, R rTSA w/ Dr. Torres
DVT Prophylaxis: Other (Eliquis)
Activity:
Out of bed.
PT/OT
Subjective
.
.:
Patient resting comfortably in bed this morning. She reports that her shoulder feels ok but she does have pain to the hip. She did get out of bed yesterday.
Vital Signs and Labs
.
Vital Signs and Labs:
Lab Results
01/04/25 05:45
01/04/25 05:45
Temp Pulse Resp BP Pulse Ox
98.7 F 75 16 131/83 97
01/03/25 23:35 01/03/25 23:35 01/03/25 23:35 01/03/25 23:35 01/03/25 23:35
Physical Exam
-
Right Shoulder: surgical dressing in place with mild strikethrough at the center. sling in place. mild expected edema and tenderness to palpation. ROM deferred. able to perform range of motion of hand and wrist without problem.
Right Hip: surgical dressing in place with small spot of strikethrough. mild tenderness to palpation of lateral hip. thigh is soft and compressible. ROM deferred. able to plantarflex and dorsiflex the ankle. calf soft and nontender. NVI distally
[2025-01-04 07:55] VITALS: BP 144/78
[2025-01-04] MEDS: COLACE PO (08:32)
[2025-01-04] MEDS: ROXICODONE 2.5 MG PO (08:35)
[2025-01-04] MEDS: ELIQUIS 2.5 MG PO ×2 (08:36→19:55)
[2025-01-04] MEDS: LOPRESSOR 50 MG PO ×2 (08:36→19:55)
[2025-01-04 09:30] VITALS: BP 153/83
[2025-01-04] MEDS: MIRALAX 17 GRAMS PO (10:31)
--- NOTE | 2025-01-04 11:16 | W.PN.HOSP.TC ---
Today's Communication/Plan
-
DC ready
Eliquis half dose D2
As per CM - can be dced to [facility] Saturday 01/06
Assessment / Plan
Assessment / Plan
Physical Exam
General: Well Developed, Well Nourished, No Apparent Distress, Comfortable and Conversant
HEENT: NormoCephalic, Moist mucous membranes, Atraumatic, [place] Conjunctivae, Nose Appears Normal and Ears Appear Normal
Respiratory: Clear
Cardiac: S1/S2 and Irregular Rhythm
Breast: Deferred by me
GI: Soft, Non Tender, Non Distended and Normal Bowel Sounds
Rectal: Deferred by Provider
Genito-urinary: Deferred by me
Musculoskeletal: No Clubbing, No Cyanosis, No Edema and Other (right should and right hip pain with limited ROM ) Right Shoulder: surgical dressing in place with mild strikethrough at the center. sling in place. Right Hip: surgical dressing in place
with small spot of strikethrough. mild tenderness to palpation of lateral hip.
Skin: IV/Catheter Site
Neuro: Awake, Alert, AO x 3 and Nonfocal/grossly intact
Psych: Calm and Intact Judgment/Insight
#mechanical fall
#Proximal right humerus fracture.
#Right femoral neck fracture with mild varus angulation.
-POD 2 R hip cannulated screw fixation and R reverse TSA with Dr. Torres
-NWB to RUE. sling in place. ok to perform ROM of hand, wrist, and elbow.
-WBAT to RLE; however may not use rolling walker yet at this time (likely about 4 weeks). ok for david walker as able
-PT/OT
-DVT ppx- reduced dose eliquis as ordered x3 days(D2) then resume normal dosing
Follow up outpatient in 2 weeks
#Acute blood loss anemia
�Probable donnell-/postoperative bleeding
� Monitor CBC closely, appears stable
� Transfuse if needed to maintain hemoglobin goal greater than 7
-Eliquis at half dose for now
#essential hypertension
- continue metoprolol
#hypercholesterolemia
- continue pravastatin
#persistent atrial fibrillation
- continue metoprolol
- Eliquis 1/2 dose
#DM-II
controlled with diet and exercise
#CAD
#GERD
#Hx ductal carcinoma in situ of breast
s/p lumpectomy and radiation
Code status: full code
DVT prophylaxis: Eliquis
Anticipated Discharge: 24 - 48 hours
Subjective/Interval History
-
Date of Service: January 04, 2025
No acute events overnight
Objective Data
-
Labs:
Laboratory Results
01/04/25
05:45
WBC 11.2 H
Hgb 10.7 L
Hct 32.4 L
Plt Count 119 L
Sodium 141
Potassium 4.5
Chloride 107
Carbon Dioxide 29
BUN 27 H
Creatinine 0.8
Glucose 150 H
Calcium 7.9 L
Vital Signs:
Vital Signs
Temp Pulse Resp BP Pulse Ox
98.1 F 73 18 144/78 100
01/04/25 07:55 01/04/25 07:55 01/04/25 07:55 01/04/25 07:55 01/04/25 08:30
I&O
01/03/25 01/04/25 01/05/25
06:59 06:59 06:59
Intake Total 2285 / 2285 1020 / 1020 240 / 240
Output Total 500 / 500 575 / 575
Balance 1785 / 1785 445 / 445 240 / 240
Review of Systems
-
History Source: Patient
All other systems: Not reviewed unless documented
Data Reviewed
-
CT Scan: Report Reviewed by me
Labs: Labs Reviewed by me
[2025-01-04 16:26] VITALS: BP 146/78
[2025-01-04] MEDS: PRAVACHOL 20 MG PO (21:56)
[2025-01-04 23:55] VITALS: BP 130/79
[2025-01-05 06:17] LABS: Hematocrit 34.7 % (37.0-47.0); Hemoglobin 11.4 g/dL (12.0-16.0); Mean Corp Hgb Conc. 32.9 g/dL (33.0-37.0); Mean Corpuscular Hgb 32.2 pg (27.0-31.0); Mean Platelet Volume 11.1 fL (7.4-10.4); Platelet Count 132 10^3/uL (130-400); Red Blood Cell Count 3.54 10^6/uL (4.20-5.40); White Blood Cell Count 8.3 10^3/uL (4.8-10.8)
[2025-01-05 06:27] LABS: Blood Urea Nitrogen 27 mg/dl (7-17); Calcium 8.2 mg/dl (8.4-10.2); Carbon Dioxide 30 mmol/L (22-30); Chloride 104 mmol/L (98-107); Estimated Creatinine Clearance 50 ml/min; Glucose 122 mg/dl (70-99); Potassium 4.4 mmol/L (3.5-5.1); Sodium 141 mmol/L (135-145); eGFR > 60.00
[2025-01-05 07:40] VITALS: BP 124/73
[2025-01-05] MEDS: LOPRESSOR 50 MG PO ×2 (09:04→21:22)
[2025-01-05] MEDS: MIRALAX 17 GRAMS PO (09:04)
[2025-01-05] MEDS: ELIQUIS 2.5 MG PO ×2 (09:04→21:22)
[2025-01-05] MEDS: ROXICODONE 2.5 MG PO (09:11)
[2025-01-05 10:05] VITALS: BP 116/71; BP 98/58; PULSE 93
--- NOTE | 2025-01-05 11:53 | W.PN.HOSP.TC ---
Today's Communication/Plan
-
DC ready
Eliquis resume full dose mia
monitor hgb
ortho recs
plan for dc to facility mia
Assessment / Plan
Assessment / Plan
Physical Exam
General: Well Developed, Well Nourished, No Apparent Distress, Comfortable and Conversant
HEENT: NormoCephalic, Moist mucous membranes, Atraumatic, [place] Conjunctivae, Nose Appears Normal and Ears Appear Normal
Respiratory: Clear
Cardiac: S1/S2 and Irregular Rhythm
Breast: Deferred by me
GI: Soft, Non Tender, Non Distended and Normal Bowel Sounds
Rectal: Deferred by Provider
Genito-urinary: Deferred by me
Musculoskeletal: No Clubbing, No Cyanosis, No Edema and Other (right should and right hip pain with limited ROM ) Right Shoulder: surgical dressing in place with mild strikethrough at the center. sling in place. Right Hip: surgical dressing in place
with small spot of strikethrough. mild tenderness to palpation of lateral hip.
Skin: IV/Catheter Site
Neuro: Awake, Alert, AO x 3 and Nonfocal/grossly intact
Psych: Calm and Intact Judgment/Insight
#mechanical fall
#Proximal right humerus fracture.
#Right femoral neck fracture with mild varus angulation.
-POD 3 R hip cannulated screw fixation and R reverse TSA with Dr. Torres
-NWB to RUE. sling in place. ok to perform ROM of hand, wrist, and elbow.
-WBAT to RLE; however may not use rolling walker yet at this time (likely about 4 weeks). ok for david walker as able
-PT/OT
-DVT ppx- reduced dose eliquis as ordered x3 days(D3) then resume normal dosing
Follow up outpatient in 2 weeks
#Acute blood loss anemia
�Probable donnell-/postoperative bleeding
� Monitor CBC closely, appears stable
� Transfuse if needed to maintain hemoglobin goal greater than 7
-Eliquis at half dose for now - resume regular dosing mia
#essential hypertension
- continue metoprolol
#hypercholesterolemia
- continue pravastatin
#persistent atrial fibrillation
- continue metoprolol
- Eliquis 1/2 dose - resume home dose mia
#DM-II
controlled with diet and exercise
#CAD
#GERD
#Hx ductal carcinoma in situ of breast
s/p lumpectomy and radiation
Code status: full code
DVT prophylaxis: Eliquis
DC ready
Anticipated Discharge: Within 24 hours
Subjective/Interval History
-
Date of Service: January 05, 2025
No acute events, about to work with PT
Objective Data
-
Labs:
Laboratory Results
01/05/25
05:28
WBC 8.3
Hgb 11.4 L
Hct 34.7 L
Plt Count 132
Sodium 141
Potassium 4.4
Chloride 104
Carbon Dioxide 30
BUN 27 H
Creatinine 0.7
Glucose 122 H
Calcium 8.2 L
Vital Signs:
Vital Signs
Temp Pulse Resp BP Pulse Ox
98.1 F 82 14 124/73 98
01/05/25 07:40 01/05/25 07:40 01/05/25 07:40 01/05/25 07:40 01/05/25 09:04
I&O
01/04/25 01/05/25 01/06/25
06:59 06:59 06:59
Intake Total 1020 / 1020 540 / 540 520 / 520
Output Total 575 / 575 350 / 350
Balance 445 / 445 540 / 540 170 / 170
Review of Systems
-
History Source: Patient
All other systems: Not reviewed unless documented
Data Reviewed
-
CT Scan: Report Reviewed by me
Labs: Labs Reviewed by me
[2025-01-05 15:10] VITALS: BP 112/78
[2025-01-05] MEDS: PRAVACHOL 20 MG PO (21:22)
[2025-01-05] MEDS: TYLENOL 650 MG PO (21:40)
[2025-01-05 23:11] VITALS: BP 124/77
[2025-01-06 07:05] VITALS: BP 126/78
[2025-01-06 07:14] LABS: Hematocrit 31.8 % (37.0-47.0); Hemoglobin 10.5 g/dL (12.0-16.0); Mean Corpuscular Hgb 31.7 pg (27.0-31.0); Mean Corpuscular Volume 96.1 fL (81.0-99.0); Mean Platelet Volume 10.7 fL (7.4-10.4); Platelet Count 124 10^3/uL (130-400); Red Blood Cell Count 3.31 10^6/uL (4.20-5.40); Red Cell Dist. Width 13.1 % (11.5-14.5); White Blood Cell Count 6.4 10^3/uL (4.8-10.8)
[2025-01-06 07:31] LABS: Blood Urea Nitrogen 29 mg/dl (7-17); Calcium 8.1 mg/dl (8.4-10.2); Carbon Dioxide 29 mmol/L (22-30); Chloride 106 mmol/L (98-107); Estimated Creatinine Clearance 50 ml/min; Glucose 108 mg/dl (70-99); Potassium 4.2 mmol/L (3.5-5.1); Sodium 139 mmol/L (135-145); eGFR > 60.00
[2025-01-06] MEDS: TYLENOL 650 MG PO (09:06)
[2025-01-06] MEDS: ELIQUIS 5 MG PO (09:07)
[2025-01-06] MEDS: MIRALAX 17 GRAMS PO (09:07)
[2025-01-06] MEDS: LOPRESSOR 50 MG PO (09:07)
--- NOTE | 2025-01-06 09:19 | W.PN.HOSP.TC ---
Addendum entered and electronically signed by Sandra Aguilera MD 01/06/25 16:30:
total DC time 40 min
Original Note:
Today's Communication/Plan
-
for SNF after BM (cont Miralax and Dulcolax [place] ordered)
Assessment / Plan
Assessment / Plan
Physical Exam
General: Well Developed, Well Nourished, No Apparent Distress, Comfortable and Conversant
HEENT: NormoCephalic, Moist mucous membranes, Atraumatic, [place] Conjunctivae, Nose Appears Normal and Ears Appear Normal
Respiratory: Clear
Cardiac: S1/S2 and Irregular Rhythm
Breast: Deferred by me
GI: Soft, Non Tender, Non Distended and Normal Bowel Sounds
Rectal: Deferred by Provider
Genito-urinary: Deferred by me
Musculoskeletal: No Clubbing, No Cyanosis, No Edema and Other (right should and right hip pain with limited ROM ) Right Shoulder: surgical dressing in place with mild strikethrough at the center. sling in place. Right Hip: surgical dressing in place
with small spot of strikethrough. mild tenderness to palpation of lateral hip.
Skin: IV/Catheter Site
Neuro: Awake, Alert, AO x 3 and Nonfocal/grossly intact
Psych: Calm and Intact Judgment/Insight
A/P:
# mechanical fall
# Proximal right humerus fracture.
# Right femoral neck fracture with mild varus angulation.
NWB to RUE. Sling in place. Ok to perform ROM of hand, wrist, and elbow.
s/p R hip cannulated screw fixation and R reverse TSA with Dr. Torres
WBAT to RLE; however may not use rolling walker yet at this time (likely about 4 weeks). Ok for david walker as able
PT/OT recc for SNF
DVT ppx- back to normal dosing 5 mg BID
Follow up outpatient in 2 weeks
# Acute blood loss anemia, Probable donnell-/postoperative bleeding
Monitor CBC closely, appears stable. Hgb today 10.5
resumed regular dose Eliquis 5 mg BID
# essential hypertension
continue metoprolol
# hypercholesterolemia
continue pravastatin
# persistent atrial fibrillation
continue metoprolol
resumed regular dose Eliquis 5 mg BID
# DM-II
controlled with diet and exercise
# CAD
# GERD
# Hx ductal carcinoma in situ of breast
s/p lumpectomy and radiation
Code status: full code
DVT prophylaxis: Eliquis
Dispo; SNF
Anticipated Discharge: Today
Subjective/Interval History
-
Date of Service: January 06, 2025
Objective Data
-
Labs:
Laboratory Results
01/06/25
06:51
WBC 6.4
Hgb 10.5 L
Hct 31.8 L
Plt Count 124 L
Sodium 139
Potassium 4.2
Chloride 106
Carbon Dioxide 29
BUN 29 H
Creatinine 0.7
Glucose 108 H
Calcium 8.1 L
Vital Signs:
Vital Signs
Temp Pulse Resp BP Pulse Ox
36.7 C 97 20 126/78 96
01/06/25 07:05 01/06/25 07:05 01/06/25 07:05 01/06/25 07:05 01/06/25 07:05
I&O
01/05/25 01/06/25 01/07/25
06:59 06:59 06:59
Intake Total 540 / 540 1360 / 1360
Output Total 350 / 350
Balance 540 / 540 1010 / 1010
Review of Systems
-
History Source: Patient
Abdomen/GI: Reports Constipated
Data Reviewed
-
Labs: Labs Reviewed by me
--- NOTE | 2025-01-06 09:44 | CM ---
Addendum entered by Pricila Zendejas RN 01/06/25 15:03:
Call report to: [phone]
Fax report to: [phone]
Medical necessity and transport forms on chart.
Original Note:
Reviewed the chart notes and spoke with the patient at the bedside. IMM reviewed. TT to [facility] with [facility] to confirm bed available today for the patient. No prior auth required. CM continues to be available to patient/family and
is monitoring medical plan for needs at discharge.
Plan: Discharge to [facility] when medically stable and bed secured.
[2025-01-06] MEDS: DULCOLAX 10 MG RECTAL (10:41)
[2025-01-06 15:02] VITALS: BP 115/77
--- NOTE | 2025-01-06 16:09 | W.DCSUMMARY ---
Discharge Summary
Discharge Data
Date of Admission: 01/01/25
Date of Discharge: 01/06/25
-
Pending Results: No
Hospital Course
Principal Diagnosis:
Mechanical fall, resulting in proximal right humerus fracture and right femoral neck fracture, status post Right hip cannulated screw fixation and Right reverse total shoulder arthroplasty
Acute blood loss anemia following OR
Chronic Diagnoses:�
Essential hypertension on metoprolol
Hypercholesterolemia, on pravastatin
Persistent atrial fibrillation on metoprolol and Eliquis
Type 2 diabetes
Coronary artery disease
Gastroesophageal reflux disease
History of ductal carcinoma in situ of breast, s/p lumpectomy and radiation
Consultations:�
Orthopedic
Procedures:�
Right hip cannulated screw fixation and Right reverse total shoulder arthroplasty by Dr. Torres 01/02/2025
Clinical course:�
This is a 89-year-old female, with past medical history as stated above, who presented with mechanical fall, resulting in proximal right humerus fracture, and right femoral neck fracture.
Problem 1:
Mechanical fall, resulting in proximal right humerus fracture and right femoral neck fracture, status post Right hip cannulated screw fixation and Right reverse total shoulder arthroplasty.
Nonweightbearing of right upper extremity, and continue to use sling per orthopedic.
Weightbearing as tolerated of the right lower extremity, however do not use rolling walker until about 4 weeks following discharge per Ortho. Okay for hemiwalker per Ortho.
The patient was discharged to SNF per PT OT recommendation.
She can continue with her home Eliquis 5 mg twice daily for DVT prophylaxis in setting of persistent atrial fibrillation.
She can follow-up with orthopedic in 2 weeks.
Problem 2:
Acute blood loss anemia postop.
Her hemoglobin has remained stable, and it was at 10.5 on the day of discharge
As for the rest of her medical problems, they were stable during her hospital stay.
Discharge Plan
-
Patient Disposition: Jail/SNF
Discharge Diagnosis/Procedures: Mechanical fall with proximal right humerus fracture and Right femoral neck fracture with mild varus angulation;
status post R hip cannulated screw fixation and R reverse TSA with Dr. Torres
Condition: Fair
Diet: As tolerated and Diabetic, Carb Controlled
Activity: As tolerated
Additional Activity: NWB to RUE. Sling in place. Ok to perform ROM of hand, wrist, and elbow.
WBAT to RLE; however may not use rolling walker yet at this time (likely about 4 weeks). Ok for david walker as able
Driving Restrictions: Not until seen by your Dr
Referrals:
NONE,* [Family Provider] - in less than 1 week
Prescriptions:
New
sennosides-docusate sodium [Senokot-S] 8.6-50 mg tablet
1 tab-cap PO HS PRN (Reason: Constipation) Qty: 14 0RF
Continued
Eliquis 5 MG tablet
5 mg PO BID
metoprolol tartrate 50 MG tablet
50 mg PO BID Qty: 60 2RF
B Complete Gummy
1 tab PO DAILY
ascorbic acid (vitamin C) [Vitamin C] 500 mg Tablet,Chewable
500 mg PO DAILY
pravastatin 20 mg Tablet
20 mg PO HS
multivit with min-folic acid 80 mcg Tablet,Chewable
1 tab PO DAILY
Discharge Orders:
Discharge Patient (As Directed); Ordered 01/06/25
Ordered By: Sandra Aguilera
Discharge Date and Time
Discharge Date/Time: 01/06/25 15:55
Print Language: [id number]
== END 2025-01-06 15:55 | DRG 480 ==
LOC: 2 SOUTH 19:42
PROVIDERS: Internal Medicine; Nurse Practitioner Family; Nurse Practitioner Gerontology; Physician Assistant; ADMITTING PHYSICIAN Hospitalist; ATTENDING PHYSICIAN Internal Medicine; CONSULT PHYSICIAN Orthopaedic Surgery Hand Surgery; EMERGENCY PHYSICIAN Student in an Organized Health Care Education/Training Program
PROC: 0QS604Z Reposition Right Upper Femur with Internal Fixation Device, Open Approach (ICD-10-PCS; 2025-01-02)
PROC: 0RRJ00Z Replacement of Right Shoulder Joint with Reverse Ball and Socket Synthetic Substitute, Open Approach (ICD-10-PCS; 2025-01-02)
DX: S42.241A 4-part fracture of surgical neck of right humerus, initial encounter for closed fracture (principal); S72.011A Unspecified intracapsular fracture of right femur, initial encounter for closed fracture; D62 Acute posthemorrhagic anemia; I48.19 Other persistent atrial fibrillation; I10 Essential (primary) hypertension; E78.00 Pure hypercholesterolemia, unspecified; E11.9 Type 2 diabetes mellitus without complications; I25.10 Atherosclerotic heart disease of native coronary artery without angina pectoris; K21.9 Gastro-esophageal reflux disease without esophagitis; Z92.3 Personal history of irradiation; Z86.000 Personal history of in-situ neoplasm of breast; Z96.611 Presence of right artificial shoulder joint; Z79.01 Long term (current) use of anticoagulants; W10.1XXA Fall (on)(from) sidewalk curb, initial encounter; Z95.5 Presence of coronary angioplasty implant and graft; Z96.642 Presence of left artificial hip joint; Z87.891 Personal history of nicotine dependence; Z79.899 Other long term (current) drug therapy; K59.00 Constipation, unspecified; M11.239 Other chondrocalcinosis, unspecified wrist; M16.11 Unilateral primary osteoarthritis, right hip
CPT/HCPCS: 70450; 72125; 73030; 73130; 73200; 73502; 76000; 80048; 80053; 81003; 81015; 82272; 82962; 85025; 85027; 86850; 86900; 86901; 93005; 96374; 96375; 97116; 97163; 97167; 97530; 97535; 99285; C1713; C1769; C1776

== ENCOUNTER → 2025-01-09 12:10 | Outpatient (REF) | payer OTHER, MEDICARE, SELFPAY ==
[2025-01-09 12:43] LABS: % Basophils 0.4 % (0-2); % Eosinophils 2.3 % (0-6); % Immature Granulocytes 0.7 % (0-0.5); % Lymphocytes 10.2 % (20.5-51.1); % Monocytes 12.4 % (1.7-9.3); Absolute Eosinophils 0.2 10^3/uL (0-0.7); Absolute Immature Granulocytes 0.1 10^3/uL (0-0.05); Absolute Lymphocytes 0.9 10^3/uL (1.2-3.4); Absolute Neutrophils 6.2 10^3/uL (1.4-6.5); Hematocrit 34.6 % (37.0-47.0); Hemoglobin 11.1 g/dL (12.0-16.0); Mean Corp Hgb Conc. 32.1 g/dL (33.0-37.0); Mean Corpuscular Volume 99.7 fL (81.0-99.0); Mean Platelet Volume 11.2 fL (7.4-10.4); Nucleated Red Blood Cells % 0 %; Platelet Count 178 10^3/uL (130-400); Red Blood Cell Count 3.47 10^6/uL (4.20-5.40); Red Cell Dist. Width 13.8 % (11.5-14.5); White Blood Cell Count 8.3 10^3/uL (4.8-10.8)
[2025-01-09 13:05] LABS: Blood Urea Nitrogen 20 mg/dl (7-17); Calcium 8.6 mg/dl (8.4-10.2); Carbon Dioxide 33 mmol/L (22-30); Chloride 105 mmol/L (98-107); Glucose 123 mg/dl (70-99); Potassium 4.4 mmol/L (3.5-5.1); Sodium 142 mmol/L (135-145); eGFR > 60.00
== END ==
LOC: OLABP 12:10
PROVIDERS: ATTENDING PHYSICIAN Family Medicine
DX: D62 Acute posthemorrhagic anemia (principal); E78.00 Pure hypercholesterolemia, unspecified; E11.9 Type 2 diabetes mellitus without complications; I48.19 Other persistent atrial fibrillation; K21.9 Gastro-esophageal reflux disease without esophagitis; I10 Essential (primary) hypertension
CPT/HCPCS: 36415; 80048; 85025

== ENCOUNTER → 2025-03-10 12:28 | Outpatient (REF) | payer OTHER, MEDICARE, SELFPAY | LOC: WOUND 12:28 | PROVIDERS: ATTENDING PHYSICIAN Surgery; FAMILY PHYSICIAN Family Medicine | DX: S51.001A Unspecified open wound of right elbow, initial encounter (principal); S42.224A 2-part nondisplaced fracture of surgical neck of right humerus, initial encounter for closed fracture; E11.8 Type 2 diabetes mellitus with unspecified complications; Z79.01 Long term (current) use of anticoagulants; X58.XXXA Exposure to other specified factors, initial encounter | CPT/HCPCS: 11042; 99213 ==

== ENCOUNTER → 2025-03-25 13:08 | Outpatient (REF) | payer OTHER, MEDICARE, SELFPAY | LOC: WOUND 13:08 | PROVIDERS: ATTENDING PHYSICIAN Surgery; FAMILY PHYSICIAN Family Medicine | DX: S51.001A Unspecified open wound of right elbow, initial encounter (principal); S42.224A 2-part nondisplaced fracture of surgical neck of right humerus, initial encounter for closed fracture; E11.8 Type 2 diabetes mellitus with unspecified complications; Z79.01 Long term (current) use of anticoagulants; X58.XXXA Exposure to other specified factors, initial encounter | CPT/HCPCS: 17250; 99213 ==

== ENCOUNTER → 2025-04-10 09:49 | Outpatient (REF) | payer MEDICARE, OTHER, SELFPAY | LOC: WOUND 09:49 | PROVIDERS: ATTENDING PHYSICIAN Surgery; FAMILY PHYSICIAN Family Medicine | DX: S51.001A Unspecified open wound of right elbow, initial encounter (principal); S42.224A 2-part nondisplaced fracture of surgical neck of right humerus, initial encounter for closed fracture; E11.8 Type 2 diabetes mellitus with unspecified complications; Z79.01 Long term (current) use of anticoagulants; X58.XXXA Exposure to other specified factors, initial encounter | CPT/HCPCS: 99212 ==

== ENCOUNTER → 2025-08-05 17:10 | Outpatient (REF) | payer MEDICARE, OTHER, SELFPAY | LOC: WDC 17:10 | PROVIDERS: ATTENDING PHYSICIAN Family Medicine | DX: Z86.000 Personal history of in-situ neoplasm of breast (principal); Z12.31 Encounter for screening mammogram for malignant neoplasm of breast | CPT/HCPCS: 77063; 77067 ==